=== PATIENT | male | born 1975 | race Caucasian/White ===

== ENCOUNTER 2024-07-17 15:18 | Observation (INO) | payer OTHER ==
[2024-07-17 15:32] LABS: Glucose,Whole Blood 196 mg/dL (70-110)
[2024-07-17 15:52] LABS: Glucose,Whole Blood 183 mg/dL (70-110)
--- NOTE | 2024-07-17 16:00 | CT ---
Head CT without contrast HISTORY: Code stroke. COMPARISON: None TECHNIQUE: Multiple axial images are obtained from skull base to vertex without the use of IV contras t material. FINDINGS: The ventricles, basal cisterns and sulci convexities within normal limits and there is no mass affect or shift of midline structures. No abnormal density is seen throughout the brain parenchyma. There is no acute intra or extra-axial h emorrhage. Posterior fossa including brain stem, fourth ventricle and cerebellopontine angles appear grossly nor mal. The intraorbital contents appear normal symmetric. There are moderate chronic laboratory changes in the maxillary sinuses. The mastoid air cells well ae rated. The calvarium is intact. IMPRESSION: No acute bleed or mass effect [facility], Workstation: [email or web address] 07/17/2024 3:58 PM
--- NOTE | 2024-07-17 16:07 | ED ---
General Adult HPI - General Chief complaint: Neuro Symptoms/Deficit Stated complaint: R Arm and Facial Numbness Time Seen by Provider: 07/17/24 15:25 Source: patient Mode of arrival: ambulatory Limitations: no limitations - History of Present Illness Initial comments: 48-year-old male with past medical history of diabetes, hypertension, hyperl ipidemia who presents emergency department with right sided numbness. Patient states he was at his ophthalmology office as he is currently being treated for a left eye infection caused by his dog. When he was in the waiting room he started having numbness and tingling to his right face, right arm and right leg. Symptoms started at 2 PM. He denies any associated weakness. No history of stroke. Patient arrives markedly hypertensive. States he did not take his metoprolol this morning. He also feels as if his speech is slurred. Patient admits to having a headache without visual disturbance. No chest pain or difficulty breathing. No other alleviating, precipitating or modifying factors - Related Data Home Medications Medication Instructions Recorded Confirmed Atorvastatin Calcium [Lipitor] 40 mg PO HS 07/17/24 07/17/24 Fenofibrate [Lofibra] 160 mg PO DAILY 07/17/24 07/17/24 Insulin Aspart Prot/Insuln Asp 40 unit PO BID-W/MEALS 07/17/24 07/17/24 [NovoLOG MIX 70-30 Flexpen] Metoprolol Tartrate [Lopressor] 25 mg PO BID 07/17/24 07/17/24 Pantoprazole [Protonix] 40 mg PO DAILY 07/17/24 07/17/24 Refresh Optive Gel Drops 1 drop LEFT EYE TID 07/17/24 07/17/24 Tobramycin [Tobramycin 0.3% Ophth 1 drop LEFT EYE QID 07/17/24 07/17/24 Soln] metFORMIN HCL [Glucophage] 850 mg PO TID-W/MEALS 07/17/24 07/17/24 Allergies Allergy/AdvReac Type Severity Reaction Status Date / Time Cephalosporins Allergy Rash/Hives Verified 07/17/24 17:30 lisinopril Allergy Rash/Hives Verified 07/17/24 17:30 Review of Systems ROS Statement: Those systems with pertinent positive or pertinent negative responses have been documented in the HPI. ROS Other: All systems not noted in ROS Statement are negative. Past Medical History Past Medical History: Diabetes Mellitus, Hyperlipidemia, Hypertension History of Any Multi-Drug Resistant Organisms: None Reported Past Surgical History: Appendectomy, Hernia Repair, Orthopedic Surgery Additional Past Surgical History / Comment(s): Left knee ligament Past Psychological History: No Psychological Hx Reported Smoking Status: Never smoker Past Alcohol Use History: Rare Past Drug Use History: None Reported General Exam Limitations: no limitations General appearance: alert, in no apparent distress Head exam: Present: atraumatic, normocephalic, normal inspection Eye exam: Present: normal appearance, PERRL, EOMI. Absent: scleral icterus, conjunctival injection, periorbital swelling ENT exam: Present: mucous membranes moist, other (Subjective decrease in sensation to the right face, right arm and right leg) Neck exam: Present: normal inspection. Absent: tenderness, meningismus, lymphadenopathy Respiratory exam: Present: normal lung sounds bilaterally. Absent: respiratory distress, wheezes, rales, rhonchi, stridor Cardiovascular Exam: Present: regular rate, normal rhythm, normal heart sounds. Absent: systolic murmur, diastolic murmur, rubs, gallop, clicks GI/Abdominal exam: Present: soft, normal bowel sounds. Absent: distended, tenderness, guarding, rebound, rigid Extremities exam: Present: normal inspection, full ROM, normal capillary refill. Absent: tenderness, pedal edema, joint swelling, calf tenderness Back exam: Present: normal inspection Neurological exam: Present: alert, oriented X3, CN II-XII intact Psychiatric exam: Present: normal affect, normal mood Skin exam: Present: warm, dry, intact, normal color. Absent: rash Course Vital Signs 07/17/24 07/17/24 07/17/24 15:24 15:40 15:55 Temperature 97.9 F Pulse Rate 60 65 64 Respiratory 18 18 15 Rate Blood Pressure 201/108 200/108 191/92 O2 Sat by Pulse 98 95 98 Oximetry 07/17/24 07/17/24 07/17/24 16:15 16:30 17:00 Temperature Pulse Rate 63 61 71 Respiratory 19 15 16 Rate Blood Pressure 163/87 169/80 O2 Sat by Pulse 98 98 98 Oximetry 07/17/24 07/17/24 07/17/24 17:04 17:15 17:30 Temperature Pulse Rate 97 75 Respiratory 18 20 15 Rate Blood Pressure 170/89 154/83 O2 Sat by Pulse 98 Oximetry 07/17/24 07/17/24 07/17/24 17:45 18:00 18:19 Temperature Pulse Rate 66 69 Respiratory 12 14 19 Rate Blood Pressure 160/80 150/77 O2 Sat by Pulse 97 98 Oximetry Medical Decision Making - Medical Decision Making Was pt. sent in by a medical professional or institution (, PA, CLAY PLANT TREATER, urgent care, hospital, or fdc...) When possible be specific @ -Patient was sent in by his eye doctor Did you speak to anyone other than the patient for history (EMS, parent, family, police, friend...)? What history was obtained from this source @ -No Did you review nursing and triage notes (agree or disagree)? Why? @ -I reviewed and agree with nursing and triage notes Were old charts reviewed (outside hosp., previous admission, EMS record, old EKG, old radiological studies, urgent care reports/EKG's, fdc records)? Report findings @ -No old charts were reviewed Differential Diagnosis (chest pain, altered mental status, abdominal pain women, abdominal pain men, vaginal bleeding, weakness, fever, dyspnea, syncope, headache, dizziness, GI bleed, back pain, seizure, CVA, palpatations, mental health, musculoskeletal)? @ -Differential CVA Ischemic stroke, hemorrhagic stroke, brain tumor, atypical migraine, Wernicke's encephalopathy, seizure, multiple sclerosis, meningitis, encephalitis, h ypoglycemia, Guillain-Kunz, electrolytes disturbance, myasthenia gravis.... This is not meant to be an all-inclusive list EKG interpreted by me (3pts min.). @ -Yes and demonstrates sinus rhythm with a rate of 60. RI interval 173. QRS 101. QTc of 393. No acute ST segment elevations or depressions X-rays interpreted by me (1pt min.). @ -Yes which demonstrates no acute process CT interpreted by me (1pt min.). @ -Yes which demonstrates no acute process U/S interpreted by me (1pt. min.). @ -None done What testing was considered but not performed or refused? (CT, X-rays, U/S, labs)? Why? @ -None What meds were considered but not given or refused? Why? @ -None Did you discuss the management of the patient with other professionals (professionals i.e. , PA, CLAY PLANT TREATER, lab, RT, psych nurse, manager social work, furniture stainer, teacher, lodge officer, correctional counselor/case manager)? Give summary @ -Spoke with Dr. Stout who did not recommend TNKase due to risk versus benefit Was smoking cessation discussed for >3mins.? @ -No Was critical care preformed (if so, how long)? @ -35 minutes for code stroke activation Were there social determinants of health that impacted care today? How? (Homelessness, low income, unemployed, alcoholism, drug addiction, transportation, low edu. Level, literacy, decrease access to med. care, correction, rehab)? @ -No Was there de-escalation of care discussed even if they declined (Discuss DNR or withdrawal of care, Hospice)? DNR status @ -No What co-morbidities impacted this encounter? (DM, HTN, Smoking, COPD, CAD, Cancer, CVA, ARF, Chemo, Hep., AIDS, mental health diagnosis, sleep apnea, morbid obesity)? @ -Obesity, diabetes, hypertension Was patient admitted / discharged? Hospital course, mention meds given and route, prescriptions, significant lab abnormalities, going to OR and other pertinent info. @ -Upon arrival patient seen and evaluated in room 1. Thorough history and physical exam was performed. NIH is assessed and is 1. Last known well was 2 PM. Code thrombolytic is activated. Patient does go for CT. I did speak with the neurointensivist who does not recommend TNKase versus benefits. CT does return and is negative. Laboratory studies within normal limits. Patient was given an aspirin and statin. Patient will be admitted for further stroke workup . Spoke with Merly from [facility] for the admission Undiagnosed new problem with uncertain prognosis? @ -No Drug Therapy requiring intensive monitoring for toxicity (Heparin, Nitro, Insulin, Cardizem)? @ -No Were any procedures done? @ -No Diagnosis/symptom? @ -Acute right sided paresthesias of the upper and lower extremity, right facial paresthesias, suspected CVA Acute, or Chronic, or Acute on Chronic? @ -Acute Uncomplicated (without systemic symptoms) or Complicated (systemic symptoms)? @ -Complicated Side effects of treatment? @ -No Exacerbation, Progression, or Severe Exacerbation? @ -No Poses a threat to life or bodily function? How? (Chest pain, [place], [place], pneumonia, PE, COPD, DKA, ARF, appy, cholecystitis, CVA, Diverticulitis, Homicidal, Suicidal, threat to staff... and all critical care pts) @ -Yes as patient is being worked up for strokelike symptoms - Lab Data Result diagrams: 07/17/24 15:55 07/17/24 15:55 Lab Results 07/17/24 07/17/24 07/17/24 Range/Units 15:29 15:49 15:55 WBC 6.62 (4.50-10.00) 10*3/uL RBC 5.20 (4.40-5.60) 10*6/uL Hgb 15.5 (13.0-17.0) g/dL Hct 45.3 (39.6-50.0) % MCV 87.1 (80.0-97.0) fL MCH 29.8 (27.0-32.0) pg MCHC 34.2 (32.0-37.0) g/dL Plt Count 173 (140-440) 10*3/uL MPV 11.2 (9.5-12.2) fL Immature Gran % (Auto) 0.5 % Neutrophils % 66.3 % Lymphocytes % 20.2 % Monocytes % 5.9 % Eosinophils % 6.2 % Basophils % 0.9 % Immature Gran # 0.03 (0.00-0.04) 10*3/uL Neutrophils # 4.39 (1.80-7.70) 10*3/uL Lymphocytes # 1.34 (0.90-5.00) 10*3/uL Monocytes # 0.39 (0.20-1.00) 10*3/uL Eosinophils # 0.41 H (0.04-0.35) 10*3/uL Basophils # 0.06 (0.00-0.10) 10*3/uL PT (10.0-12.5) sec INR (<1.2) APTT (22.0-30.0) sec Sodium (137-145) mmol/L Potassium (3.5-5.1) mmol/L Chloride (98-107) mmol/L Carbon Dioxide (22-30) mmol/L Anion Gap mmol/L BUN (9-20) mg/dL Creatinine (0.66-1.25) mg/dL Est GFR (CKD-EPI)AfAm (>60 ml/min/1.73 sqM) Est GFR (CKD-EPI)NonAf (>60 ml/min/1.73 sqM) Glucose (74-99) mg/dL POC Glucose (mg/dL) 196 H 183 H (70-110) mg/dL POC Glu Glue Line Operator ID Brannon Swann Calcium (8.4-10.2) mg/dL Total Bilirubin (0.2-1.3) mg/dL AST (17-59) U/L ALT (4-49) U/L Alkaline Phosphatase (38-126) U/L Creatine Kinase (55-170) U/L Troponin I (0.000-0.034) ng/mL Total Protein (6.3-8.2) g/dL Albumin (3.5-5.0) g/dL 07/17/24 07/17/24 07/17/24 Range/Units 15:55 15:55 15:55 WBC (4.50-10.00) 10*3/uL RBC (4.40-5.60) 10*6/uL Hgb (13.0-17.0) g/dL Hct (39.6-50.0) % MCV (80.0-97.0) fL MCH (27.0-32.0) pg MCHC (32.0-37.0) g/dL Plt Count (140-440) 10*3/uL MPV (9.5-12.2) fL Immature Gran % (Auto) % Neutrophils % % Lymphocytes % % Monocytes % % Eosinophils % % Basophils % % Immature Gran # (0.00-0.04) 10*3/uL Neutrophils # (1.80-7.70) 10*3/uL Lymphocytes # (0.90-5.00) 10*3/uL Monocytes # (0.20-1.00) 10*3/uL Eosinophils # (0.04-0.35) 10*3/uL Basophils # (0.00-0.10) 10*3/uL PT 11.4 (10.0-12.5) sec INR 1.0 (<1.2) APTT 22.5 (22.0-30.0) sec Sodium 138 (137-145) mmol/L Potassium 4.6 (3.5-5.1) mmol/L Chloride 104 (98-107) mmol/L Carbon Dioxide 24 (22-30) mmol/L Anion Gap 10 mmol/L BUN 9 (9-20) mg/dL Creatinine 0.81 (0.66-1.25) mg/dL Est GFR (CKD-EPI)AfAm >90 (>60 ml/min/1.73 sqM) Est GFR (CKD-EPI)NonAf >90 (>60 ml/min/1.73 sqM) Glucose 197 H (74-99) mg/dL POC Glucose (mg/dL) (70-110) mg/dL POC Glu Glue Line Operator ID Calcium 9.7 (8.4-10.2) mg/dL Total Bilirubin 0.6 (0.2-1.3) mg/dL AST 21 (17-59) U/L ALT 28 (4-49) U/L Alkaline Phosphatase 59 (38-126) U/L Creatine Kinase 64 (55-170) U/L Troponin I <0.012 (0.000-0.034) ng/mL Total Protein 7.2 (6.3-8.2) g/dL Albumin 4.7 (3.5-5.0) g/dL Disposition Clinical Impression: Paresthesias in right hand, CVA (cerebral vascular accident) Disposition: ADMITTED IP TO THIS [facility] Condition: Stable Is patient prescribed a controlled substance at d/c from ED?: No Time of Disposition: 17:24 Decision to Admit Reason: Admit from EC Decision Date: 07/17/24 Decision Time: 17:24
[2024-07-17 16:12] LABS: Basophils # (A) 0.06 10*3/uL (0.00-0.10); Basophils % (A) 0.9 %; Eosinophils # (A) 0.41 10*3/uL (0.04-0.35); Eosinophils % (A) 6.2 %; HCT 45.3 % (39.6-50.0); HGB 15.5 g/dL (13.0-17.0); Lymphocytes # (A) 1.34 10*3/uL (0.90-5.00); Lymphocytes % (A) 20.2 %; MCH 29.8 pg (27.0-32.0); MCHC 34.2 g/dL (32.0-37.0); MCV 87.1 fL (80.0-97.0); Mean Platelet Volume 11.2 fL (9.5-12.2); Monocytes # (A) 0.39 10*3/uL (0.20-1.00); Monocytes % (A) 5.9 %; Neutrophils # (A) 4.39 10*3/uL (1.80-7.70); Neutrophils % (A) 66.3 %; Platelet Count 173 10*3/uL (140-440); RDW 12.6 % (11.5-14.5); WBC 6.62 10*3/uL (4.50-10.00)
[2024-07-17 16:21] LABS: Partial Thromboplastin Time 22.5 sec (22.0-30.0); Prothrombin Time 11.4 sec (10.0-12.5)
[2024-07-17 16:31] LABS: ALT 28 U/L (4-49); AST 21 U/L (17-59); African American GFR (CKD) >90 (>60 ml/min/1.73 sqM); Albumin 4.7 g/dL (3.5-5.0); Alkaline Phosphatase 59 U/L (38-126); Anion Gap 10 mmol/L; Blood Urea Nitrogen 9 mg/dL (9-20); Calcium 9.7 mg/dL (8.4-10.2); Carbon Dioxide 24 mmol/L (22-30); Chloride 104 mmol/L (98-107); Creatine Kinase 64 U/L (55-170); Glucose 197 mg/dL (74-99); Non-African American GFR(CKD) >90 (>60 ml/min/1.73 sqM); Potassium 4.6 mmol/L (3.5-5.1); Sodium 138 mmol/L (137-145); Total Bilirubin 0.6 mg/dL (0.2-1.3); Total Protein 7.2 g/dL (6.3-8.2)
--- NOTE | 2024-07-17 16:58 | CT ---
EXAMINATION TYPE: CT angio head neck DATE OF EXAM: 07/17/2024 COMPARISON: CLINICAL INDICATION: Male, 48 years old with history of Neuro deficit, acute, stroke suspected; PHH, NEURO DEFICIT TECHNIQUE: CTA scan of the head and neck is performed with IV Contrast, patient injected with 65 mL of Isovue 370, axial images are obtained, coronal and sagittal reformatted images are reviewed. 3D re constructed images are created on an independent workstation and reviewed. CT DLP: 2064.[address] CTDI: mGy Automated exposure control for dose reduction was used. NASCET criteria was used in interpretation of this exam? FINDINGS: The brachiocephalic origins are widely patent and no significant stenosis. There is no significant stenosis of the common or internal carotid arteries within the neck. There is no stenosis of the vertebral arteries. Intracranially, there is no stenosis, segmental occlusion, sizable aneurysm sac or vascular malformat ion. IMPRESSION:. No significant abnormality seen. NASCET criteria was used in interpretation of this exam? [facility], Workstation: [email or web address] 07/17/2024 4:55 PM
[2024-07-17] MEDS ORDERED: NALOXONE 0.4 MG/ML 1 ML VIAL IV PRN (17:24)
[2024-07-17] MEDS: ATORVASTATIN 40 MG TAB PO SCH (17:47)
[2024-07-17] MEDS: ASPIRIN 325 MG TAB PO STA (17:47)
[2024-07-17] MEDS: ACETAMINOPHEN TAB 325 MG TAB PO STA (17:48)
--- NOTE | 2024-07-17 19:15 | XR ---
EXAMINATION TYPE: XR chest 2V DATE OF EXAM: 07/17/2024 6:36 PM COMPARISON: None CLINICAL INDICATION: Male, 48 years old with history of altered mental status; [facility] TECHNIQUE: XR chest 2V Frontal and lateral views of the chest. FINDINGS: Lungs/Pleura: There is no evidence of pleural effusion, focal consolidation, or pneumothorax. Pulmonary vascularity: Unremarkable. Heart/mediastinum: Cardiomediastinal silhouette is unremarkable. Musculoskeletal: No acute osseous pathology. Other findings: None IMPRESSION: No acute cardiopulmonary disease/process. [facility], , 07/17/2024 7:13 PM
[2024-07-17 19:38] LABS: Glucose,Whole Blood 130 mg/dL (70-110)
[2024-07-17] MEDS: INSULIN NPL/INSULIN LISPRO 100 UNIT/ML 10 ML VL (Humalog 75/25) SQ SCH (19:51)
[2024-07-17] MEDS: METOPROLOL TARTRATE 25 MG TAB PO SCH (20:53)
[2024-07-18] MEDS: ARTIFICIAL TEARS-HYPROMELLOSE DROPS 15 ML BTL LEFT EYE SCH (00:19)
[2024-07-18] MEDS: TOBRAMYCIN 0.3% OPHTH DROPS 5 ML BTL LEFT EYE SCH (00:19)
[2024-07-18 08:01] LABS: Glucose,Whole Blood 167 mg/dL (70-110)
[2024-07-18] MEDS: PANTOPRAZOLE 40 MG TABLET PO SCH (09:09)
[2024-07-18] MEDS: FENOFIBRATE 160 MG TAB PO SCH (09:10)
[2024-07-18] MEDS: metFORMIN 850 MG TAB PO SCH (09:43)
[2024-07-18 10:25] LABS: Chol/HDL Ratio 5.74 Ratio; LDL Cholesterol,Calculated 162.8 mg/dL (0.0-131.0)
--- NOTE | 2024-07-18 10:29 | P.HPIM ---
History of Present Illness H&P Date: 07/18/24 History of present illness; patient is a 48-year-old gentleman past medical history significant for hypertension, diabetes, hyperlipidemia who presented to the hospital because of right-sided numbness. Patient was all right yesterday afternoon when around 4 PM he started noticing right-sided numbness. 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 While in the waiting room he started noticing numbness of his right face arm and leg. There was no weakness of any extremity. There was no complaint of facial droop. Patient feels like his speech was slurred. He also complaining of headache. Because of the symptoms, patient was sent to the [facility] complaint of dizziness. There is no complaint of headache. Lab work in the ER showed W6.62, hemoglobin 15.5, platelet count 173 sodium 138, potassium 4.6, BUN 9, creatinine 0.81 glucose 197, calcium 9.7, bilirubin 0.6 AST 21, ALT 28, troponin 0.012 EKG done in the ER showed heart rate of 60, no ST segment elevation or depression seen, no T-wave inversions seen. Chest x-ray done in the ER showed no acute cardiopulmonary process CT head done showed no acute intracranial process CTA head and neck done showed no evidence of of dissection of the cervical internal carotid arteries or vertebral arteries, no evidence of significant stenosis at the carotid bifurcations, no evidence of intracranial high-grade stenosis or aneurysm ER physician discussed the case with neurointensivist and at this time do not recommend any TNK. On my exam patient symptoms had resolved Patient admitted to internal medicine service REVIEW OF SYSTEMS: CONSTITUTIONAL: No fever, no malaise, no fatigue. HEENT: No recent visual problems or hearing problems. Denied any sore throat. CARDIOVASCULAR: No chest pain, orthopnea, PND, no palpitations, no syncope. PULMONARY: No shortness of breath, no cough, no hemoptysis. GASTROINTESTINAL: No diarrhea, no nausea, no vomiting, no abdominal pain. NEUROLOGICAL: As mentioned above HEMATOLOGICAL: Denies any bleeding or petechiae. GENITOURINARY: Denies any burning micturition, frequency, or urgency. MUSCULOSKELETAL/RHEUMATOLOGICAL: Denies any joint pain, swelling, or any muscle pain. ENDOCRINE: Denies any polyuria or polydipsia. The rest of the 14-point review of systems is negative. PHYSICAL EXAMINATION: GENERAL: The patient is alert and oriented x3, not in any acute distress. Well developed, well nourished. HEENT: Pupils are round and equally reacting to light. EOMI. No scleral icterus. No conjunctival pallor. Normocephalic, atraumatic. No pharyngeal erythema. No thyromegaly. CARDIOVASCULAR: S1 and S2 present. No murmurs, rubs, or gallops. PULMONARY: Chest is clear to auscultation, no wheezing or crackles. ABDOMEN: Soft, nontender, nondistended, normoactive bowel sounds. No palpable organomegaly. MUSCULOSKELETAL: No joint swelling or deformity. EXTREMITIES: No cyanosis, clubbing, or pedal edema. NEUROLOGICAL: Gross neurological examination did not reveal any focal deficits. SKIN: No rashes. Assessment and plan Right-sided numbness TIA History of hypertension history of diabetes mellitus history hyperlipidemia Monitor vital signs Monitor CBC Monitor CMP Continue telemetry monitoring Ordered neurochecks Ordered telemetry monitoring Ordered lipid panel Ordered 2D echo Ordered MRI brain Start aspirin, Lipitor Orders PT OT Order speech therapy Ordered neurology consult Labs and medication were reviewed.. Continue same treatment. Continue with symptomatic treatment. Resume home medication. Monitor labs and vitals. DVT and GI prophylaxis. Further recommendations as per clinical course of the patient Dictation was produced using [employer] dictation software. please excuse any grammatical, word or spelling errors. Past Medical History Past Medical History: Diabetes Mellitus, Hyperlipidemia, Hypertension History of Any Multi-Drug Resistant Organisms: None Reported Past Surgical History: Appendectomy, Hernia Repair, Orthopedic Surgery Additional Past Surgical History / Comment(s): Left knee ligament Past Psychological History: No Psychological Hx Reported Smoking Status: Never smoker Past Alcohol Use History: Rare Past Drug Use History: None Reported Medications and Allergies Home Medications Medication Instructions Recorded Confirmed Type Atorvastatin Calcium [Lipitor] 40 mg PO HS 07/17/24 07/17/24 History Fenofibrate [Lofibra] 160 mg PO DAILY 07/17/24 07/17/24 History Insulin Aspart Prot/Insuln Asp 40 unit PO BID-W/MEALS 07/17/24 07/17/24 History [NovoLOG MIX 70-30 Flexpen] Metoprolol Tartrate [Lopressor] 25 mg PO BID 07/17/24 07/17/24 History Pantoprazole [Protonix] 40 mg PO DAILY 07/17/24 07/17/24 History Refresh Optive Gel Drops 1 drop LEFT EYE TID 07/17/24 07/17/24 History Tobramycin [Tobramycin 0.3% Ophth 1 drop LEFT EYE QID 07/17/24 07/17/24 History Soln] metFORMIN HCL [Glucophage] 850 mg PO TID-W/MEALS 07/17/24 07/17/24 History Allergies Allergy/AdvReac Type Severity Reaction Status Date / Time Cephalosporins Allergy Rash/Hives Verified 07/17/24 17:30 lisinopril Allergy Rash/Hives Verified 07/17/24 17:30 Physical Exam Vitals: Vital Signs Temp Pulse Resp BP Pulse Ox 07/18/24 09:13 63 20 146/70 96 07/18/24 06:45 54 L 18 135/74 97 07/18/24 05:20 59 L 18 156/88 97 07/18/24 03:24 54 L 18 152/80 97 07/18/24 00:20 57 L 18 131/64 97 07/17/24 20:54 98.2 F 60 15 165/86 98 07/17/24 19:00 64 12 144/65 97 07/17/24 18:30 64 18 100 07/17/24 18:19 19 07/17/24 18:00 69 14 150/77 98 07/17/24 17:45 66 12 160/80 97 07/17/24 17:30 75 15 154/83 98 07/17/24 17:15 97 20 170/89 07/17/24 17:04 18 07/17/24 17:00 71 16 169/80 98 07/17/24 16:30 61 15 98 07/17/24 16:15 63 19 163/87 98 07/17/24 15:55 64 15 191/92 98 07/17/24 15:40 65 18 200/108 95 07/17/24 15:24 97.9 F 60 18 201/108 98 Intake and Output 07/17/24 07/18/24 07/18/24 22:59 06:59 14:59 Other: Weight 136.078 kg Results CBC & Chem 7: 07/17/24 15:55 07/17/24 15:55 Labs: Abnormal Lab Results - Last 24 Hours (Table) 07/17/24 07/17/24 07/17/24 Range/Units 15:29 15:49 15:55 Eosinophils # 0.41 H (0.04-0.35) 10*3/uL Glucose (74-99) mg/dL POC Glucose (mg/dL) 196 H 183 H (70-110) mg/dL 07/17/24 07/17/24 07/18/24 Range/Units 15:55 19:36 08:00 Eosinophils # (0.04-0.35) 10*3/uL Glucose 197 H (74-99) mg/dL POC Glucose (mg/dL) 130 H 167 H (70-110) mg/dL
--- NOTE | 2024-07-18 13:42 | P.CNNES ---
History of Present Illness Consult date: 07/18/24 Requesting physician: Ashley Matthews Reason for Consult: right sided paresthesias, possible cva History of Present Illness: This is a 48-year-old gentleman who presents emergency department because of finding difficulty, right facial and arm numbness. 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 His symptoms lasted till 9 PM. He denies any further issues and he feels back to baseline. He stated that recently his dog scratched his left eye when he was playing with his dog and as a result he developed corneal abrasion and he is on antibiotic ointment and he is following up with bindery supervisor. He denies any history of stroke. He does have underlying history of hypertension, diabetes, hypercholesteremia. He is not on any antiplatelet. He continues to have swelling in the face from the dog scratch recently but states it is drastically improving. Some of the work-up during this hospital visit consisted of: Blood cells within normal limits. Patient is afebrile. Blood pressure on presentation is 201/108. Cholestrol level is triglycerides 177, cholesterol 240, LDL 162 and HDL is 41 I reviewed the rest of the lab workup CT of the head is reported as no acute bleed or mass effect. I personally reviewed the CT and agree with the report CT angiography of the head and neck is reported as no significant abnormality seen. Review of Systems As per HPI. Past Medical History Past Medical History: Diabetes Mellitus, Hyperlipidemia, Hypertension History of Any Multi-Drug Resistant Organisms: None Reported Past Surgical History: Appendectomy, Hernia Repair, Orthopedic Surgery Additional Past Surgical History / Comment(s): Left knee ligament Past Psychological History: No Psychological Hx Reported Smoking Status: Never smoker Past Alcohol Use History: Rare Past Drug Use History: None Reported Medications and Allergies Home Medications Medication Instructions Recorded Confirmed Type Atorvastatin Calcium [Lipitor] 40 mg PO HS 07/17/24 07/17/24 History Fenofibrate [Lofibra] 160 mg PO DAILY 07/17/24 07/17/24 History Insulin Aspart Prot/Insuln Asp 40 unit PO BID-W/MEALS 07/17/24 07/17/24 History [NovoLOG MIX 70-30 Flexpen] Metoprolol Tartrate [Lopressor] 25 mg PO BID 07/17/24 07/17/24 History Pantoprazole [Protonix] 40 mg PO DAILY 07/17/24 07/17/24 History Refresh Optive Gel Drops 1 drop LEFT EYE TID 07/17/24 07/17/24 History Tobramycin [Tobramycin 0.3% Ophth 1 drop LEFT EYE QID 07/17/24 07/17/24 History Soln] metFORMIN HCL [Glucophage] 850 mg PO TID-W/MEALS 07/17/24 07/17/24 History Allergies Allergy/AdvReac Type Severity Reaction Status Date / Time Cephalosporins Allergy Rash/Hives Verified 07/17/24 17:30 lisinopril Allergy Rash/Hives Verified 07/17/24 17:30 Physical Examination - Vital Signs Vital Signs: Vital Signs Temp Pulse Resp BP Pulse Ox 07/18/24 12:00 58 L 20 169/88 96 07/18/24 10:34 53 L 20 146/86 99 07/18/24 09:13 63 20 146/70 96 07/18/24 06:45 54 L 18 135/74 97 07/18/24 05:20 59 L 18 156/88 97 07/18/24 03:24 54 L 18 152/80 97 07/18/24 00:20 57 L 18 131/64 97 07/17/24 20:54 98.2 F 60 15 165/86 98 07/17/24 19:00 64 12 144/65 97 07/17/24 18:30 64 18 100 07/17/24 18:19 19 07/17/24 18:00 69 14 150/77 98 07/17/24 17:45 66 12 160/80 97 07/17/24 17:30 75 15 154/83 98 07/17/24 17:15 97 20 170/89 07/17/24 17:04 18 07/17/24 17:00 71 16 169/80 98 07/17/24 16:30 61 15 98 07/17/24 16:15 63 19 163/87 98 07/17/24 15:55 64 15 191/92 98 07/17/24 15:40 65 18 200/108 95 07/17/24 15:24 97.9 F 60 18 201/108 98 Intake and Output 07/17/24 07/18/2407/18/25 22:59 06:59 14:59 Other: Weight 136.078 kg GENERAL: The patient is lying in bed and is not in acute distress. HENT: Has facial edema and erythema around the left eye and cheek mostly left > right (states improving). NEUROLOGICAL: Higher mental function: The patient is awake, alert, oriented to self, place and time. Patient is following commands. No aphasia and no neglect. Cranial nerves: The pupils are round, equal and reactive to light and accommodation. Visual castle are full to confrontation throughout. Extraocular movement is intact no nystagmus is noted. Facial sensation is normal to touch throughout. The facial strength is normal throughout. Hearing is normal bilaterally to hand rub. Tongue is midline and moved [id number] without any difficulty. No dysarthria is noted. Shoulder shrug is normal bilaterally. Motor: The strength is 5 over 5 throughout. Normal tone and bulk. Cerebellum: Normal finger to nose bilaterally. Sensation: Sensation is normal to touch throughout. Reflexes (right/left):2+ throughout. Plantars are mute bilaterally. Results - Laboratory Findings CBC and BMP: 07/17/24 15:55 07/17/24 15:55 Abnormal Lab Findings: Abnormal Labs 07/17/24 07/17/24 07/17/24 15:29 15:49 15:55 Eosinophils # 0.41 H Glucose POC Glucose (mg/dL) 196 H 183 H Triglycerides Cholesterol LDL Cholesterol, Calc 07/17/24 07/17/24 07/18/24 15:55 19:36 07:54 Eosinophils # Glucose 197 H POC Glucose (mg/dL) 130 H Triglycerides 177.00 H Cholesterol 240.00 H LDL Cholesterol, Calc 162.8 H 07/18/24 08:00 Eosinophils # Glucose POC Glucose (mg/dL) 167 H Triglycerides Cholesterol LDL Cholesterol, Calc Assessment and Plan Assessment: This is a 48-year-old gentleman who presents emergency department yesterday because of difficulty forming words or sentences, generalized weakness and right facial and arm numbness. His blood pressure was in the 200s over 100s on presentation. CT and CT angiography head and neck is unremarkable Probable transient ischemic attack Hypertensive urgency Dyslipidemia Recent left corneal abrasion from scratch of his dog and he is on antibiotic ointment History of hypertension Underlying diabetes mellitus Underlying history of hypercholesteremia Plan: Patient was given aspirin 325 once in the ED and was started on Lipitor 40 mg daily. I started the patient on aspirin 81 mg daily. Will avoid dual antiplatelets until we obtain MRI of the brain with and without to rule out any abscess especially with the recent abrasion I feel the abscess is unlikely. 2D echo is ordered and is pending PT OT and PORTFOLIO MANAGER are consulted Continue neurochecks Cardiac monitoring For DVT prophylaxis patient is ambulatory Will defer the rest of the medical management to the primary team Thank you for the consultation Time with Patient: Greater than 30
[2024-07-18 16:46] VITALS: RESP 16
[2024-07-18 17:00] LABS: Glucose,Whole Blood 136 mg/dL (70-110)
--- NOTE | 2024-07-18 17:37 | CA ---
Transthoracic Echo Report Name: Deejay Putnam Age: 48 Gender: M : 1975 Exam Date: 07/18/2024 12:38 Exam Location: [facility] Ht (in): 74 Wt (lb): 300 Ordering Physician: Gatito Zuleta MD Attending/Referring Phys: Bingo Checker Talisha Chan RDCS Procedure CPT: Indications: CVA Cardiac Hx: Technical Quality: Fair Contrast 1: Agitated Saline Total Dose (mL): 8 Contrast 2: Total Dose (mL): MEASUREMENTS (Male / Female) Normal Values 2D ECHO LV Diastolic Diameter PLAX 5.8 cm 4.2 - 5.9 / 3.9 - 5.3 cm LV Systolic Diameter PLAX 4.1 cm IVS Diastolic Thickness 1.2 cm 0.6 - 1.0 / 0.6 - 0.9 cm LVPW Diastolic Thickness 1.2 cm 0.6 - 1.0 / 0.6 - 0.9 cm LV Relative Wall Thickness 0.4 RV Internal Dim ED PLAX 3.8 cm LA Systolic Diameter LX 4.4 cm 3.0 - 4.0 / 2.7 - 3.8 cm LV Diastolic Volume MOD BP 142.1 cm??? 67 - 155 / 56 - 104 cm??? LV Systolic Volume MOD BP 68.9 cm??? 22 - 58 / 19 - 49 cm??? LV Ejection Fraction MOD BP 51.5 % >= 55 % LV Cardiac Index MOD BP 1347.5 cm???/min???m??? LV Diastolic Volume MOD 4C 152.7 cm??? LV Systolic Volume MOD 4C 87.2 cm??? LV Ejection Fraction MOD 4C 42.9 % LV Cardiac Index MOD 4C 1206.4 cm???/min???m??? LV Diastolic Length 4C 8.1 cm LV Systolic Length 4C 6.5 cm LV Diastolic Volume MOD 2C 132.2 cm??? LV Systolic Volume MOD 2C 53.2 cm??? LV Ejection Fraction MOD 2C 59.8 % LV Cardiac Index MOD 2C 1454.9 cm???/min???m??? LV Diastolic Length 2C 8.1 cm LV Systolic Length 2C 6.8 cm LA Volume 66.8 cm??? 18 - 58 / 22 - 52 cm??? LA Volume Index 24.6 cm???/m??? 16 - 28 cm???/m??? M-MODE Aortic Root Diameter MM 3.4 cm AV Cusp Separation MM 2.4 cm DOPPLER AV Peak Velocity 116.3 cm/s AV Peak Gradient 5.4 mmHg MV Area PHT 4.1 cm??? Mitral E Point Velocity 89.8 cm/s Mitral A Point Velocity 50.0 cm/s Mitral E to A Ratio 1.8 MV Deceleration Time 182.9 ms TR Peak Velocity 189.6 cm/s TR Peak Gradient 14.4 mmHg Right Ventricular Systolic Press 19.4 mmHg FINDINGS Left Ventricle Left ventricular ejection fraction is estimated at 50-55 %. Mildly increased septal wall thickness. Mildly increased left ventricular systolic volume. Mildly decreased left ventricular ejection fraction. Right Ventricle . Right ventricular systolic pressure within normal limits. Right Atrium Mild right atrial dilatation. No right atrial thrombus or mass seen. Negative agitated saline bubble study for right to left shunt. Left Atrium Mildly increased left atrial diameter. Mildly increased left atrial volume. Mildly increased left atrial area. No left atrial thrombus or mass present. Mitral Valve Structurally normal mitral valve. No mitral stenosis, regurgitation or prolapse. Aortic Valve Trileaflet aortic valve. No aortic valve stenosis or regurgitation. Tricuspid Valve Structurally normal tricuspid valve. Trace to mild tricuspid regurgitation. Pulmonic Valve Structurally normal pulmonic valve. No pulmonic regurgitation. Pericardium No pericardial effusion. Aorta Normal size aortic root and proximal ascending aorta. CONCLUSIONS LVEF 55% Mild concentric LVH Normal RV size and systolic function Mild biatrial dilatation No evidence of [id number] intracardiac shunting on bubble study No significant valvular dysfunction Previewed by: Dr Phoenix Freeman (Electronically Signed) Final Date: 18 July 2024 17:36
[2024-07-18] MEDS: ASPIRIN 81 MG PO SCH (18:12)
[2024-07-18 20:22] LABS: Glucose,Whole Blood 197 mg/dL (70-110)
[2024-07-19 06:13] LABS: Glucose,Whole Blood 159 mg/dL (70-110)
[2024-07-19 11:38] LABS: Glucose,Whole Blood 145 mg/dL (70-110)
--- NOTE | 2024-07-19 15:13 | MR ---
EXAMINATION TYPE: MR brain wo/w con DATE OF EXAM: 07/19/2024 2:38 PM COMPARISON: None. CLINICAL INDICATION: Male, 48 years old with history of right facial and arms numbness. r/o cva vs ab scess, right facial and arm numbness, r/o CVAvs abscess TECHNIQUE: Multiplanar, multiecho imaging on a 3.0 Kaylynn magnet is performed through the brain. Stud y is performed within 24 hours of arrival to the hospital.Multiplanar, multiecho imaging on a 3.0 Annabella la magnet is performed through the knee. IV Contrast: 14 mL Gadobutrol (None, if empty) FINDINGS: The craniovertebral junction is normal. The pituitary is normal. Diffusion-weighted imaging is performed. No abnormal hyperintensity is present to suggest an acute i ntracranial infarct or acute ischemic change. There are scattered punctate areas of hyperintensity on T2 and Inversion Recovery weighted sequences which are non-specific but can be related to microvascular ischemic changes. Ventricles and sulci are appropriate for the patient age. There is a patent cavum septum lucidum, nor mal variant. Following contrast, no abnormal enhancement is evident. Small retention cyst within the inferior maxillary sinuses. Remaining paranasal sinuses and mastoid a ir cells are clear. Supervisor [employer] spaces are normal IMPRESSION: 1. No suspicious acute intracranial process. [facility], , 07/19/2024 3:10 PM
[2024-07-19 16:33] LABS: Glucose,Whole Blood 123 mg/dL (70-110)
--- NOTE | 2024-07-19 17:56 | P.PN ---
Subjective Progress Note Date: 07/19/24 48-year-old gentleman past medical history significant for hypertension, diabetes, hyperlipidemia who presented to the hospital because of right-sided numbness. Patient was all right yesterday afternoon when around 4 PM he started noticing right-sided numbness. 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 While in the waiting room he started noticing numbness of his right face arm and leg. There was no weakness of any extremity. There was no complaint of facial droop. Patient feels like his speech was slurred. He also complaining of headache. Because of the symptoms, patient was sent to the [facility] complaint of dizziness. There is no complaint of headache. Lab work in the ER showed W6.62, hemoglobin 15.5, platelet count 173 sodium 138, potassium 4.6, BUN 9, creatinine 0.81 glucose 197, calcium 9.7, bilirubin 0.6 AST 21, ALT 28, troponin 0.012 EKG done in the ER showed heart rate of 60, no ST segment elevation or depression seen, no T-wave inversions seen. Chest x-ray done in the ER showed no acute cardiopulmonary process CT head done showed no acute intracranial process CTA head and neck done showed no evidence of of dissection of the cervical internal carotid arteries or vertebral arteries, no evidence of significant stenosis at the carotid bifurcations, no evidence of intracranial high-grade stenosis or aneurysm ER physician discussed the case with neurointensivist and at this time do not recommend any TNK. On my exam patient symptoms had resolved Patient admitted to internal medicine service Objective - Vital Signs Vital signs: Vital Signs Temp 97.9 F 07/19/24 08:35 Pulse 55 L 07/19/24 08:35 Resp 16 07/19/24 08:35 BP 153/83 07/19/24 08:35 Pulse Ox 98 07/19/24 08:35 FiO2 Intake & Output 07/18/24 07/19/24 07/19/24 18:59 06:59 18:59 Intake Total 540 240 Balance 540 240 Weight 136.078 kg 143.5 kg Intake: Oral 540 240 Other: Voiding Method Toilet Toilet # Voids 1 - Exam GENERAL: The patient is alert and oriented x3, not in any acute distress. Well developed, well nourished. HEENT: Pupils are round and equally reacting to light. EOMI. No scleral icterus. No conjunctival pallor. Normocephalic, atraumatic. No pharyngeal erythema. No thyromegaly. CARDIOVASCULAR: S1 and S2 present. No murmurs, rubs, or gallops. PULMONARY: Chest is clear to auscultation, no wheezing or crackles. ABDOMEN: Soft, nontender, nondistended, normoactive bowel sounds. No palpable organomegaly. MUSCULOSKELETAL: No joint swelling or deformity. EXTREMITIES: No cyanosis, clubbing, or pedal edema. NEUROLOGICAL: Gross neurological examination did not reveal any focal deficits. SKIN: No rashes. - Labs CBC & Chem 7: 07/17/24 15:55 07/17/24 15:55 Labs: Abnormal Lab Results - Last 24 Hours (Table) 07/18/24 07/18/24 07/19/24 Range/Units 16:57 20:20 06:12 POC Glucose (mg/dL) 136 H 197 H 159 H (70-110) mg/dL 07/19/24 Range/Units 11:36 POC Glucose (mg/dL) 145 H (70-110) mg/dL Assessment and Plan Assessment: Right-sided numbness TIA History of hypertension history of diabetes mellitus history hyperlipidemia Monitor vital signs Monitor CBC Monitor CMP Continue telemetry monitoring Ordered neurochecks Ordered telemetry monitoring Ordered lipid panel Ordered 2D echo Ordered MRI brain Start aspirin, Lipitor Orders PT OT Order speech therapy Ordered neurology consult Labs and medication were reviewed.. Continue same treatment. Continue with symptomatic treatment. Resume home medication. Monitor labs and vitals. DVT and GI prophylaxis. Further recommendations as per clinical course of the patient
[2024-07-19 20:19] LABS: Glucose,Whole Blood 206 mg/dL (70-110)
[2024-07-20 06:12] LABS: Glucose,Whole Blood 150 mg/dL (70-110)
[2024-07-20 07:56] LABS: Basophils # (A) 0.06 10*3/uL (0.00-0.10); Basophils % (A) 1.1 %; Eosinophils # (A) 0.41 10*3/uL (0.04-0.35); Eosinophils % (A) 7.2 %; HGB 14.4 g/dL (13.0-17.0); Lymphocytes % (A) 29.8 %; MCH 30.1 pg (27.0-32.0); MCHC 34.3 g/dL (32.0-37.0); MCV 87.9 fL (80.0-97.0); Monocytes # (A) 0.41 10*3/uL (0.20-1.00); Monocytes % (A) 7.2 %; Neutrophils # (A) 3.09 10*3/uL (1.80-7.70); Neutrophils % (A) 54.2 %; Platelet Count 166 10*3/uL (140-440); RBC 4.78 10*6/uL (4.40-5.60); RDW 12.5 % (11.5-14.5)
[2024-07-20 08:11] LABS: African American GFR (CKD) >90 (>60 ml/min/1.73 sqM); Anion Gap 9 mmol/L; Blood Urea Nitrogen 13 mg/dL (9-20); Calcium 9.5 mg/dL (8.4-10.2); Carbon Dioxide 29 mmol/L (22-30); Chloride 103 mmol/L (98-107); Glucose 130 mg/dL (74-99); Non-African American GFR(CKD) >90 (>60 ml/min/1.73 sqM); Potassium 3.9 mmol/L (3.5-5.1); Sodium 141 mmol/L (137-145)
[2024-07-20 09:25] VITALS: TEMP 98.1
--- NOTE | 2024-07-20 11:45 | P.PN ---
Subjective Progress Note Date: 07/20/24 I am following-up with the patient and patient feels he is back to baseline. Denies of any new neurological issues. Objective - Vital Signs Vital signs: Vital Signs Temp 98.1 F 07/20/24 09:05 Pulse 51 L 07/20/24 09:05 Resp 16 07/20/24 09:05 BP 185/80 07/20/24 09:05 Pulse Ox 99 07/20/24 09:05 FiO2 Intake & Output 07/19/24 07/20/24 07/20/24 18:59 06:59 18:59 Intake Total 720 540 Balance 720 540 Weight 142 kg Intake: Oral 720 540 Other: Voiding Method Toilet Toilet Toilet # Voids 1 2 1 - Exam GENERAL: The patient is lying in bed and is not in acute distress. HENT: Has facial edema and erythema around the left eye and cheek mostly left > right (states improving). NEUROLOGICAL: Higher mental function: The patient is awake, alert, oriented to self, place and time. Patient is following commands. No aphasia and no neglect. Cranial nerves: The pupils are round, equal and reactive to light and accommodation. Visual castle are full to confrontation throughout. Extraocular movement is intact no nystagmus is noted. Facial sensation is normal to touch throughout. The facial strength is normal throughout. Hearing is normal bilaterally to hand rub. Tongue is midline and moved [id number] without any difficulty. No dysarthria is noted. Shoulder shrug is normal bilaterally. Motor: The strength is 5 over 5 throughout. Normal tone and bulk. Cerebellum: Normal finger to nose bilaterally. Sensation: Sensation is normal to touch throughout. Some of the work-up during this hospital visit consisted of: White Blood cells within normal limits. Patient is afebrile. Blood pressure on presentation is 201/108. Cholestrol level is triglycerides 177, cholesterol 240, LDL 162 and HDL is 41 I reviewed the rest of the lab workup CT of the head is reported as no acute bleed or mass effect. I personally reviewed the CT and agree with the report CT angiography of the head and neck is reported as no significant abnormality seen. MRI Brain: No suspicious acute intracranial process. - Labs CBC & Chem 7: 07/20/24 07:19 07/20/24 07:19 Labs: Abnormal Lab Results - Last 24 Hours (Table) 07/19/24 07/19/24 07/20/24 Range/Units 16:31 20:18 06:11 Eosinophils # (0.04-0.35) 10*3/uL Glucose (74-99) mg/dL POC Glucose (mg/dL) 123 H 206 H 150 H (70-110) mg/dL 07/20/24 07/20/24 Range/Units 07:19 07:19 Eosinophils # 0.41 H (0.04-0.35) 10*3/uL Glucose 130 H (74-99) mg/dL POC Glucose (mg/dL) (70-110) mg/dL Assessment and Plan Assessment: This is a 48-year-old gentleman who presents emergency department yesterday because of difficulty forming words or sentences, generalized weakness and right facial and arm numbness. His blood pressure was in the 200s over 100s on presentation. CT and CT angiography head and neck is unremarkable Probable transient ischemic attack. MRI Brain is negative. Hypertensive urgency Dyslipidemia Recent left corneal abrasion from scratch of his dog and he is on antibiotic ointment History of hypertension Underlying diabetes mellitus Underlying history of hypercholesteremia Plan: Patient was given aspirin 325 once in the ED and was started on Lipitor 40 mg daily. I started the patient on aspirin 81 mg daily and started Plavix 75mg daily. Recommend dual antiplatelets for 21 days and after that only ASA and no need for Plavix. PT OT and EXTRUSION DIE TEMPLATE MAKER are consulted Continue neurochecks Cardiac monitoring For DVT prophylaxis patient is ambulatory Will defer the rest of the medical management to the primary team Upon discharge, recommend the patient to follow-up with outpatient neurologist within 2-3 weeks. Patient is clear from neurological perspective. Will sign off. Please reconsult if needed. Time with Patient: Less than 30
[2024-07-20 11:53] LABS: Glucose,Whole Blood 106 mg/dL (70-110)
[2024-07-20 11:55] VITALS: BP 165/66; PULSE 50
[2024-07-20] MEDS: CLOPIDOGREL 75 MG TAB PO SCH (12:36)
== END 2024-07-20 13:40 | disposition home or self-care (01) ==
LOC: EC 15:18 → 3SCARD 17:26 → INTOOBSV 17:26 → 3SCARD 20:39
PROVIDERS: ADMIT Hospitalist; ATTEND Hospitalist
DX: R20.2 Paresthesia of skin (principal); R20.0 Anesthesia of skin; R53.1 Weakness; R47.02 Dysphasia; I16.0 Hypertensive urgency; I10 Essential (primary) hypertension; E78.00 Pure hypercholesterolemia, unspecified; E11.9 Type 2 diabetes mellitus without complications; S05.02XA Injury of conjunctiva and corneal abrasion without foreign body, left eye, initial encounter; X58.XXXA Exposure to other specified factors, initial encounter; Z79.4 Long term (current) use of insulin; Z79.84 Long term (current) use of oral hypoglycemic drugs; Z79.899 Other long term (current) drug therapy; Z88.1 Allergy status to other antibiotic agents
CPT/HCPCS: 99291; 36415; 93005; 93306; 80061; 80053; 80048; 82550; 84484; 85025 ×2; 85610; 85730; 71046; 70496; 70450; 70498; 70553; G0378 ×4; Q9967; A9585